=== PATIENT | female | born 1965 | race Caucasian/White ===

== ENCOUNTER 2021-03-13 11:30 | Outpatient (REF) | payer BC, SELFPAY ==
[2021-03-13 13:26] LABS: Binax Internal Control QC Valid; Binax Now Covid-19 Ag Negative (Negative)
== END 2021-03-13 11:31 | disposition home or self-care (01) ==
LOC: HO.LAB 11:30
PROVIDERS: Visit Provider Internal Medicine
DX: Z20.822 Contact with and (suspected) exposure to COVID-19 (principal)
CPT/HCPCS: 36415; C9803

== ENCOUNTER 2021-03-13 12:48 | Emergency (ER) | payer BC, SELFPAY ==
[2021-03-13 12:55] VITALS: BP 168/89; PULSE 71; RESP 19; TEMP 36.6; O2SAT 100; BMI 25.7
== END 2021-03-14 00:12 | disposition left against medical advice (07) ==
PROVIDERS: Emergency Provider Emergency Medicine
DX: R42 Dizziness and giddiness (principal)
CPT/HCPCS: 99281; 99282

== ENCOUNTER 2021-10-31 07:50 | Outpatient (REF) | payer BC, SELFPAY ==
--- NOTE | ~2021-10-31 | MM_ITS ---
EXAMINATION: MM SCREENING DIGITAL BREAST TOMOSYNTHESIS, BILATERAL CLINICAL INFORMATION: Screening. Asymptomatic. The lifetime risk of breast cancer based on the Tyrer-Cuzick Model is 13%. COMPARISON: Outside mammography 2D images: 03/15/2018, 10/24/2012 (SAKINA Thayer). TECHNIQUE: Digital breast tomosynthesis is performed in both the craniocaudal and mediolateral oblique views along with computer-aided detection (CAD). Synthesized 2D images are generated from the tomosynthesis. FINDINGS: There are scattered areas of fibroglandular density (ACR BI-RADS breast composition Category b). There are no significant masses, abnormal calcifications, or other abnormalities. Background stromal and fibroglandular densities are similar to outside exams. There is an intramammary node again seen posterior upper outer left breast and a clip marker anterior upper outer right breast. The axilla and skin contours are unremarkable. MM/MM tomosynthesis screening BI IMPRESSION: No mammographic evidence of malignancy. ASSESSMENT: BI-RADS 2: Benign RECOMMENDATION: Routine annual mammography screening. This patient's information was entered into a reminder system with a target due date for their next mammogram.
== END 2021-10-31 07:51 | disposition home or self-care (01) ==
LOC: HO.MAMMO 07:50
PROVIDERS: Visit Provider Internal Medicine
DX: Z12.31 Encounter for screening mammogram for malignant neoplasm of breast (principal)
CPT/HCPCS: 77063; 77067

== ENCOUNTER 2022-04-13 09:23 | Outpatient (REF) | payer BC, SELFPAY ==
[2022-04-13 11:58] LABS: Hematocrit 42.5 % (37.0-47.0); Hemoglobin 14.3 g/dl (12.0-16.0); Mean Corpuscular HGB Conc 33.6 g/dl (31.0-35.0); Mean Corpuscular Hemoglobin 31.4 pg (27.0-33.0); Mean Corpuscular Volume 93.4 fL (80.0-98.0); Mean Platelet Volume 10.5 fL (9.4-12.3); Platelet Count 251 X10*3/uL (160-400); Red Blood Count 4.55 X10*6/uL (4.20-5.50); Red Cell Distribution Width 12.3 % (11.0-16.0); White Blood Count 5.7 X10*3/uL (4.8-10.8)
[2022-04-13 12:36] LABS: Alanine Aminotransferase 13 U/L (0-31); Albumin Level 4.6 g/dL (3.5-5.0); Alkaline Phosphatase 81 U/L (39-117); Anion Gap 12 (12-20); Aspartate Amino Transferase 10 U/L (5-31); Bilirubin Direct 0.2 mg/dL (0.0-0.5); Bilirubin Total 0.8 mg/dL (0.0-1.0); Blood Urea Nitrogen 12 mg/dL (9-16); C Reactive Protein < 0.10 mg/dL (< or = 0.50); Carbon Dioxide 28 mmol/L (22-29); Chloride 105 mmol/L (96-108); Estimated Glomerular Filt Rate > 60; Glucose Random 87 mg/dL (60-115); Lipase 18 U/L (8-78); Potassium 4.2 mmol/L (3.3-5.1); Sodium 141 mmol/L (135-145); Total Protein 7.3 g/dL (6.5-8.0)
[2022-04-13 12:50] LABS: TSH reflex Free T4 1.93 uIU/mL (0.32-4.0)
[2022-04-13 13:01] LABS: Erythrocyte Sedimentation Rate 5 MM/HR (0-20)
[2022-04-15 13:43] LABS: Transglutaminase Ab IgG <1.0 U/mL; Transglutaminase IgA <1.0 U/mL
== END 2022-04-13 09:24 | disposition home or self-care (01) ==
LOC: HO.LAB 09:23
PROVIDERS: PCP Registered Nurse Community Health; Referring Provider Registered Nurse Community Health; Visit Provider Nurse Practitioner Family
DX: Z01.818 Encounter for other preprocedural examination (principal); M25.50 Pain in unspecified joint; K21.9 Gastro-esophageal reflux disease without esophagitis; R10.11 Right upper quadrant pain; K58.2 Mixed irritable bowel syndrome
CPT/HCPCS: 36415; 80053; 82248; 83690; 84443; 85027; 85652; 86140; 86364

== ENCOUNTER 2022-04-14 09:39 | Outpatient (REF) | payer BC, SELFPAY ==
[2022-04-24 00:39] LABS: Pancreatic Elastase-1 >500 mcg/g
== END 2022-04-14 09:40 | disposition home or self-care (01) ==
LOC: HO.LNP 09:39
PROVIDERS: Visit Provider Nurse Practitioner Family
DX: R10.9 Unspecified abdominal pain (principal)
CPT/HCPCS: 82656

== ENCOUNTER 2022-05-12 07:42 | Outpatient (REF) | payer BC, SELFPAY ==
--- NOTE | ~2022-05-12 | US_ITS ---
EXAMINATION: US ABDOMEN COMPLETE CLINICAL INFORMATION: Unspecified abdominal pain. COMPARISON: None TECHNIQUE: Real-time imaging of the abdominal viscera. FINDINGS: PANCREAS: The head of the body of the pancreas is homogeneous echotexture. The tail is obscured by overlying gas. The pancreatic duct measures 0.2 cm. ABDOMINAL AORTA: The proximal, mid, and distal segments are normal in caliber. INFERIOR VENA CAVA: Visualized portions are normal. LIVER: Normal. The liver is normal in size. The liver contour is normal. Parenchymal echogenicity is normal. No focal hepatic lesion. There is no intrahepatic biliary duct dilatation seen. GALLBLADDER: Gallbladder wall thickness measures 0.2 cm. The gallbladder is physiologically distended without evidence of stones, sludge, polyps, wall thickening or pericholecystic fluid. COMMON BILE DUCT: Normal in caliber measuring 0.5 cm in diameter. RIGHT KIDNEY: There is mild pelvic fullness No hydronephrosis. No renal calculi or focal parenchymal lesions. The kidney measures 8.9 cm in maximum dimension. LEFT KIDNEY: There is an echogenic stone in midpole measuring 0.2 x 0.3 cm. No hydronephrosis or focal parenchymal lesions. The kidney measures 10.9 cm in maximum dimension. SPLEEN: Normal. The spleen measures 10.3 cm in maximum dimension. FREE FLUID: None. US/US abdomen complete IMPRESSION: 1. Nonobstructive echogenic stone midpole left kidney. 2. Mild pelvic fullness right kidney. 3. The rest of the abdominal ultrasound is unremarkable.
== END 2022-05-12 07:43 | disposition home or self-care (01) ==
LOC: HO.US 07:42
PROVIDERS: PCP Registered Nurse Community Health; Visit Provider Nurse Practitioner Family
DX: R10.9 Unspecified abdominal pain (principal)
CPT/HCPCS: 76700

== ENCOUNTER → 2022-06-16 10:24 | Outpatient (BNVA) | payer BC, SELFPAY | PROVIDERS: PCP Registered Nurse Community Health; Referring Provider Registered Nurse Community Health; Visit Provider Nurse Practitioner Family | DX: Z13.89 Encounter for screening for other disorder (principal) ==

== ENCOUNTER 2022-07-15 10:38 | Day surgery (SDC) | payer BC, SELFPAY ==
[2022-07-13 13:47] VITALS: BMI 25.3
--- NOTE | 2022-07-14 12:07 | P.CONAN_ITS ---
Documented by User: Tina Moya NP 07/14/22 12:07 HPI - Anesthesia Eval Consult details Narrative: 57yo F for Colonoscopy [facility] Past Medical History Medical History (Updated 07/13/22 @ 13:47 by Annabella Flores RN) GERD (gastroesophageal reflux disease) IBS (irritable bowel syndrome) Family History Family History Sister Breast cancer Father Diabetes Mother HTN (hypertension) Surgical History Surgical History H/O abdominoplasty H/O colonoscopy Previous section Status post breast reduction Social History Social History Alcohol intake: never Patient Tobacco Use Status: Never used Tobacco Use of substances other than those prescribed or required for medical reasons: No Are you DNR?: No Advance Directives: No Advance Directives Information Provided: Yes Meds Allergies Allergy/AdvReac Type Severity Reaction Status Date / Time No Known Allergies Allergy Verified 06/16/22 10:32 Home Medications Medication Instructions Recorded Confirmed Last Taken Type cholecalciferol (vitamin D3) 50 50 mcg PO DAILY 04/13/22 07/13/22 Unknown History mcg (2,000 unit) tablet Exam Exam Date and Time: July 14, 2022 1207 Height,Weight and Vital Signs: Height 5 ft 3 in Weight 64.864 kg Assessment and Plan Assessment Anesthesia Assessment: Chart Reviewed Documented by User: Chelsie Becker MD 07/15/22 12:40 [facility] Past Medical History Medical History (Updated 07/13/22 @ 13:47 by Annabella Flores RN) GERD (gastroesophageal reflux disease) IBS (irritable bowel syndrome) Family History Family History Sister Breast cancer Father Diabetes Mother HTN (hypertension) Family history of problems with anesthesia: No Surgical History Surgical History H/O abdominoplasty H/O colonoscopy Previous section Status post breast reduction History of Problems with Anesthesia: No Social History Social History Alcohol intake: never Patient Tobacco Use Status: Never used Tobacco Use of substances other than those prescribed or required for medical reasons: No Are you DNR?: No Advance Directives: No Advance Directives Information Provided: Yes Meds Allergies Allergy/AdvReac Type Severity Reaction Status Date / Time No Known Allergies Allergy Verified 06/16/22 10:32 Home Medications Medication Instructions Recorded Confirmed Last Taken Type cholecalciferol (vitamin D3) 50 50 mcg PO DAILY 04/13/22 07/13/22 Unknown History mcg (2,000 unit) tablet Exam Airway Mallampati Class: II TM Dist: >3cm Neck ROM: Full Heart: rrr Lungs: cta Assessment and Plan Assessment Anesthesia Assessment: Anesthesia Plan Discussed Final Anesthetic Review Family History of Problems with Anesthesia: No History of Problems with Anesthesia: No NPO: Yes ASA Class: II Final Preanesthetic Review: No Changes in Pt Med Stat, Meds/Allgs Chart Reviewed and Consent Obtained/Reviewed Patient Risk: Intermediate Procedure Risk: Intermediate Anesthetic Plan Anesthetic Plan: MAC: Disposition: Standard PACU
[2022-07-15 12:06] VITALS: BP 136/62; RESP 18; TEMP 36.5; O2SAT 97; BMI 24.8
[2022-07-15] MEDS: Lactated Ringers 1,000 ML 50 ML IVCONT (12:29)
--- NOTE | 2022-07-15 12:40 | MHC.SHP ---
Pre-Procedural Eval Section A Date of Service: 07/15/22 Section B Chief Complaint: Unspecified abdominal pain,reflux Relevant Family History (Specify if Yes): No Relevant Social History: None Present Medications: see Short Stay Collaborative assessment Medical History: Significant History (GERD (gastroesophageal reflux disease) IBS (irritable bowel syndrome)) History of Previous Operations: Relevant previous surgery/procedure and date(s) (H/O abdominoplasty H/O colonoscopy Previous section Status post breast reduction) Allergies: Allergies Allergy/AdvReac Type Severity Reaction Status Date / Time No Known Allergies Allergy Verified 06/16/22 10:32 Review of Systems Sugical H&P ROS: Negative: Constitution, Cardiovascular, Respiratory, Neurological, Psychiatric, Hem-Onc, Allergic/Immunologic, Gastrointestinal, Genitourinary, Musculoskeletal, Integumentary, Endocrine and Eyes/Ears/Nose/Throat Exam Surgical H&P Exam: Normal: HEENT, Normal: Heart, Normal: Lungs, Normal: Extremities, Normal: Abdomen, Normal: Skin and Normal: Neurological Plan Diagnosis/Plan: Unchanged I have reviewed the history and physical and performed a pertinent physical examination on my patient. No changes have occurred unless specified. Time Spent With Patient Time: Total time managing care of this patient today ____ minutes.
--- NOTE | 2022-07-15 13:41 | P.OP_ITS ---
Operative Note Operative Note Date of Service: 07/15/22 Narrative: Operative Information Procedure Description: EGD, Colonoscopy Indication: abdominal pain Anesthesia: MAC FLEXIBLE TRANSORAL UPPER GASTROINTESTINAL ENDOSCOPY AND COLONOSCOPY PROCEDURE NOTE UPPER ENDOSCOPY Consent: Indications for the procedure and potential complications of bleeding, perforation, reaction to medications and missed diagnosis were discussed with the patient and informed consent was obtained. Instrument: Olympus GIF H 190 J mid size upper endoscope Monitoring: Vital signs and clinical assessment, continuous EKG monitoring, Pulse oximetry, Carbon Dioxide monitoring and blood pressure monitoring were done throughout the procedure. Procedure: The patient was placed in the left lateral decubitis position and pre-procedure medications were administered and a bite block was placed. The endoscope was inserted into the mouth and advanced under direct vision to the third part of duodenum. A careful inspection was made as the upper endoscope was withdrawn including a retroflexed examination of the proximal stomach; Findings and interventions are described below. Findings: Larynx:normal Esophagus: GE junction at 40 cm, diaphragm hiatus at 40 cm, soem esophagitis at GEJ, bx taken as well as from distal esophagus Stomach: patchy gastritis in antrum and around cardia bx taken. Grade 2 flap valve on retroflexed examination of the cardia. Duodenum: Normal bulb and descending duodenum, bx taken Intervention: Biopsies as noted above COLONOSCOPY Instrument: Olympus variable stiffness pediatric scope 190L Colonoscopy Monitoring: Vital signs and clinical assessment, continuous EKG monitoring, Pulse oximetry, Carbon Dioxide monitoring and blood pressure monitoring were done throughout the procedure. Colon withdrawal time was 18 minutes. Procedure: The patient was placed in the left lateral decubitis position and pre-procedure medications were administered. After a digital rectal examination of the ano-rectum, the video colonoscope was inserted into the rectum and advanced through the colon to the cecum/TI. The colonoscope was slowly withdrawn in a retrograde panoramic fashion and the colon mucosa was carefully examined including a retroflexed view of the rectum. Findings and interventions are described below. Procedure Difficulty: moderate Findings: Terminal Ileum-normal, bx taken random colon bx taken Cecum: 4-6 mm sessile polyp removed with cold forceps Ascending Colon: normal Transverse Colon -normal Descending Colon:normal Sigmoid Colon: mild diverticulosis Rectum: Retroflexion with small internal hemorrhoids, grade I Anorectum - normal Colon preparation: [place] Bowel Preparation Scale Right colon; 2 Transverse colon: 2 Left colon; 2 (0 = Unprepared colon segment with mucosa not seen due to solid stool that cannot be cleared. 1 = Portion of mucosa of the colon segment seen, but other areas of the colon segment not well seen due to staining, residual stool and/or opaque liquid. 2 = Minor amount of residual staining, small fragments of stool and/or opaque liquid, but mucosa of colon segment seen well. 3 = Entire mucosa of colon segment seen well with no residual staining, small fragments of stool or opaque liquid) Impression and Post Procedure Diagnosis: Endoscopy Findings: gastritis esophagitis Colonoscopy Findings: polyp internal hemorrhoids Plan: Await Pathology results Repeat Colonoscopy in 5-6 years due to polyp or earlier if clinically indicated High fiber diet leaflet avoid straining at stool, epsom salts and sitz bath, anusol supps or cream if h pylori pos then treat Above findings were reviewed with the patient and relevant handouts were provided if indicated.
[2022-07-15 13:45] VITALS: BP 98/69; PULSE 77; RESP 16; TEMP 36.3; O2SAT 100
[2022-07-15 14:00] VITALS: BP 139/75; PULSE 57; RESP 14; TEMP 36.3; O2SAT 99
== END 2022-07-15 14:45 | disposition home or self-care (01) ==
PROVIDERS: PCP Registered Nurse Community Health; Visit Provider Internal Medicine Gastroenterology
PROC: (CPT 45380; principal; 2022-07-15 12:50)
DX: R10.9 Unspecified abdominal pain (principal); D12.0 Benign neoplasm of cecum; K57.30 Diverticulosis of large intestine without perforation or abscess without bleeding; K64.0 First degree hemorrhoids; K58.9 Irritable bowel syndrome, unspecified; R13.10 Dysphagia, unspecified; K29.50 Unspecified chronic gastritis without bleeding; K21.9 Gastro-esophageal reflux disease without esophagitis; K20.90 Esophagitis, unspecified without bleeding; K44.9 Diaphragmatic hernia without obstruction or gangrene; Z98.890 Other specified postprocedural states; Z87.891 Personal history of nicotine dependence
CPT/HCPCS: 45380; 43239; 88305; 88342

== ENCOUNTER → 2022-07-20 10:27 | Outpatient (REF) | payer BC, SELFPAY ==
--- NOTE | ~2022-07-20 | NM_ITS ---
EXAMINATION: BILIARY TRACT IMAGING STUDY WITH CCK CLINICAL INFORMATION: Unspecified abdominal pain. COMPARISON: Abdominal ultrasound done on 05/12/2022. TECHNIQUE: Serial gamma scintillation camera images were obtained over the abdomen for a total observation period of 60 minutes following the intravenous administration of 5 mCi Tc-99m mebrofenin. FINDINGS: There is good concentration of activity in the liver by 5 minutes post injection. Biliary activity is visualized by 10 minutes. The gallbladder is well visualized by 30 minutes. Small bowel is well visualized by 50 minutes. At 60 minutes post radiopharmaceutical injection, a 30-minute infusion of 1.3 micrograms Sincalide was then begun and an additional 40 minutes of images were obtained. There is good emptying of the gallbladder. By the end of the study there is good clearance of activity from the liver and visualization of diffuse small bowel activity. The calculated gallbladder ejection fraction is 94% (normal gallbladder ejection fraction is greater than 35%). NM/NM hepatobiliary w pharm IMPRESSION: Visualization of the gallbladder is evidence of a patent cystic duct and strong evidence against the diagnosis of acute cholecystitis. The common bile duct is patent. Gallbladder emptying and ejection fraction are normal. Liver function appears normal.
== END ==
LOC: HO.NUCMED 10:27
PROVIDERS: PCP Registered Nurse Community Health; Visit Provider Nurse Practitioner Family
DX: R10.9 Unspecified abdominal pain (principal)
CPT/HCPCS: 78227; A9537; J2805

== ENCOUNTER → 2022-07-28 07:42 | Outpatient (BNVA) | payer BC, SELFPAY | PROVIDERS: PCP Registered Nurse Community Health; Referring Provider Registered Nurse Community Health; Visit Provider Nurse Practitioner Family ==

== ENCOUNTER 2023-03-26 12:21 | Observation (INO) | payer OTHER, BC, SELFPAY ==
--- NOTE | ~2023-03-26 | XR_ITS ---
EXAMINATION: XR CHEST CLINICAL INFORMATION: Headache COMPARISON: None available. TECHNIQUE: 2 views of the chest were obtained. FINDINGS: No significant abnormality is noted involving the heart, lungs, mediastinum, bony thorax or soft tissues. XR/XR chest 2V IMPRESSION: Unremarkable examination.
--- NOTE | ~2023-03-26 | CT_ITS ---
EXAMINATION: CTA head and neck CLINICAL INFORMATION: Left facial numbness, visual changes COMPARISON: None available. TECHNIQUE: Test bolus sequences followed by intravenous administration of 70 mL of Omnipaque 350 contrast. Helical imaging was performed in the axial plane from the skull vertex to the thoracic inlet. Delayed postcontrast imaging of the head was also performed. The data was processed at the angiography technologist workstation for generation of MIP sequences. Angled MIPs and volume rendered reformatted images were also generated at an offline 3D workstation. Stenoses are assessed in accordance with NASCET criteria unless otherwise indicated. This CT examination was performed using dose optimization techniques as appropriate, variously including the following: *Automated exposure control *Adjustment of mA and/or kV according to patient size (this includes techniques or standardized protocols for targeted exams where dose is matched to indication/reason for exam; i.e. extremities or head) *Use of iterative reconstruction technique DLP: 2862 mGy-cm FINDINGS: BRAIN: No acute intracranial hemorrhage or infarct. The campos-white matter differentiation is preserved. No midline shift or hydrocephalus. No acute extra-axial fluid collections. The osseous structures are unremarkable. No orbital pathology. The paranasal sinuses and mastoid air cells are clear. Motion artifact is present. CTA NECK: Three-vessel aortic arch. The innominate and bilateral subclavian arteries are patent. The origins and cervical segments of the common carotid arteries as well as the common carotid artery bifurcations are patent bilaterally. The cervical segments of the internal carotid arteries are also patent bilaterally. The origins and cervical segments of the vertebral arteries are patent bilaterally. No hemodynamically significant stenosis, dissection, or aneurysm. The visualized branches of the external carotid arteries are unremarkable. CTA HEAD: Anterior circulation: The petrous, cavernous, and supraclinoid segments of the internal carotid arteries are patent bilaterally. The major branches of the anterior and middle cerebral arteries as well as the anterior communicating artery complex are patent. No large vessel occlusion, saccular aneurysm, or dissection. Posterior circulation: The intracranial vertebral arteries are patent bilaterally. The basilar artery is normal in course and caliber. The posterior cerebral and superior cerebellar arteries arise normally from the basilar summit. No aneurysm. On delayed imaging, the venous structures demonstrate normal contrast opacification. No filling defect. No abnormal intraparenchymal enhancement. Soft tissues: No suspicious neck mass or cervical adenopathy. Bones: Clear. Bones: No acute osseous abnormality. No lytic or blastic osseous lesions. Mild multilevel degenerative changes of the visualized spine. CT/CT angio head neck IMPRESSION: Within the limitations of this study, -CT head demonstrates no acute intracranial hemorrhage or infarct. -CTA head demonstrates no large vessel occlusion, saccular aneurysm, or dissection. -CTA neck demonstrates no hemodynamically significant stenosis, dissection, or aneurysm.
--- NOTE | ~2023-03-26 | MR_ITS ---
EXAMINATION: MR BRAIN WITHOUT CONTRAST CLINICAL INFORMATION: Left facial numbness, floaters COMPARISON: CTA from earlier same day TECHNIQUE: MRI of the brain was obtained using routine sequences without contrast. FINDINGS: No acute infarct. No acute intracranial hemorrhage or extra-axial fluid collection. The ventricles and sulci are normal in size and configuration without significant volume loss or hydrocephalus. No parenchymal signal abnormality. No mass lesion, mass effect, or herniation pattern. Normal intracranial arterial and dural venous sinus flow voids. Normal appearance of the midline structures. The orbits are grossly unremarkable. A submucosal mucosal thickening. No mastoid effusion. Normal marrow signal. MR/MR head/brain wo con IMPRESSION: No acute intracranial abnormality.
[2023-03-26 12:45] VITALS: BP 170/101; PULSE 76; RESP 18; TEMP 37; O2SAT 97; BMI 25.7
--- NOTE | 2023-03-26 13:06 | ECG_ITS ---
Test Reason : ?STROKE Blood Pressure : / mmHG Vent. Rate : 078 BPM Atrial Rate : 078 BPM P-R Int : 176 ms QRS Dur : 090 ms QT Int : 382 ms P-R-T Axes : 044 -11 008 degrees QTc Int : 435 ms Normal sinus rhythm Minimal voltage criteria for LVH, may be normal variant ( R in aVL ) Borderline ECG No previous ECGs available Referred By: Samantha Mendez Electronically Signed By:CHARITY MCNULTY
[2023-03-26 13:27] LABS: MANUAL DIFF FLAG NO
[2023-03-26 13:30] LABS: Basophils Percent Auto 0.7 % (0-2); Eosinophils Absolute Auto 0.1 X10*3/uL (0.0-0.4); Eosinophils Percent Auto 1.2 % (0-4); Hematocrit 38.9 % (37.0-47.0); Hemoglobin 13.2 g/dl (12.0-16.0); Imm Gran Abs Auto 0.01 X10*3/uL (0.00-0.03); Imm Gran Pct Auto 0.2 % (0.0-0.4); Lymphocytes Absolute Auto 2.4 X10*3/uL (1.2-4.9); Lymphocytes Percent Auto 40.5 % (20-40); Mean Corpuscular HGB Conc 33.9 g/dl (31.0-35.0); Mean Corpuscular Hemoglobin 30.6 pg (27.0-33.0); Mean Corpuscular Volume 90.3 fL (80.0-98.0); Mean Platelet Volume 9.9 fL (9.4-12.3); Monocytes Absolute Auto 0.5 X10*3/uL (0.1-1.2); Monocytes Percent Auto 9.1 % (2-11); Neutrophils Absolute Auto 2.9 x10*3/uL (2.0-8.3); Neutrophils Percent Auto 48.3 % (45-73); Platelet Count 285 X10*3/uL (160-400); Red Blood Count 4.31 X10*6/uL (4.20-5.50); Red Cell Distribution Width 12.3 % (11.0-16.0); White Blood Count 5.9 X10*3/uL (4.8-10.8)
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
[2023-03-26 13:34] LABS: INTERNATIONAL NORM RATIO 0.9 (0.9-1.1); Prothrombin Time 10.9 SEC (11.1-13.3)
--- NOTE | 2023-03-26 13:35 | PC.NURSE ---
Alert but agitated stating he needs to speak to Dr. Felix. When asked what he needs to talk to provider about he states dialysis. Patient reminded that he had dialysis yesterday at 6am and if he is still in the hospital and needs dialysis he would be able to receive it at this facility. Patient calmed but then become angry that he is NPO , message sent to provider regarding NPO status. Provider at bedside to explain to patient it is not safe for him to be discharge home at this time. Provider explained to patient he would receive dialysis here tomorrow. BP elevated provider aware
--- NOTE | 2023-03-26 13:41 | PC.NURSE ---
Patient reports was in [facility] yesterday and today is having head, neck , and abdominal pain. Reports seeing springer and black floaters. 20g IV placed in left AC
[2023-03-26 13:49] LABS: Alanine Aminotransferase 16 U/L (0-31); Albumin Level 4.3 g/dL (3.5-5.0); Alkaline Phosphatase 75 U/L (39-117); Anion Gap 12 (12-20); Aspartate Amino Transferase 9 U/L (5-31); Bilirubin Total 0.4 mg/dL (0.0-1.0); Blood Urea Nitrogen 7 mg/dL (9-16); Calcium 9.7 mg/dL (8.4-10.2); Carbon Dioxide 30 mmol/L (22-29); Chloride 105 mmol/L (96-108); Creatinine Clr Calc Pharmacy 93.4; Estimated Glomerular Filt Rate > 60; Glucose Random 104 mg/dL (60-115); Magnesium 2.2 mg/dL (1.6-2.6); Sodium 143 mmol/L (135-145); Total Protein 7.2 g/dL (6.5-8.0)
[2023-03-26 13:59] LABS: Troponin-I High Sensitivity < 2.7 ng/L (<3.5-17.0)
[2023-03-26] MEDS: iohexoL 350 MG/ML 100 ML INFUS..BTL IV (15:22)
[2023-03-26 15:43] LABS: Lipase 18 U/L (8-78)
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
--- NOTE | 2023-03-26 17:31 | PHA.MEDREC ---
Pharmacy Consult ? Medication Reconciliation Pharmacy has completed the medication reconciliation. Confirmed with patient that she is not taking any medication. Sharee Cuevas CPhT
[2023-03-26 18:14] VITALS: BP 132/86; PULSE 83; RESP 16; TEMP 36.9; O2SAT 98
--- NOTE | 2023-03-26 18:57 | PC.NURSE ---
MRI screening form completed with patient, patient then stated she does not want to stay in the hospital overnight. Explained risks of leaving, patient stating she will follow up wednesday if she is still having floaters. Dr. Deal aware patient doesnt want to stay, stating patient would need to leave ama
--- NOTE | 2023-03-26 19:13 | PC.NURSE ---
Patient deciding to stay to have MRI done, provider notified
--- NOTE | 2023-03-26 20:09 | PC.NURSE ---
Pt in MRI
--- NOTE | 2023-03-26 21:32 | PC.NURSE ---
Pt resting at the bedside. No apparent distress noted. Reports eye and neck pain, 6/10. Reports wanting to go home and would like to be called with the MRI results. [place] text sent to Dr. Pino.
[2023-03-26 21:49] VITALS: BP 129/85; PULSE 69; RESP 14; O2SAT 96
[2023-03-26] MEDS: Atorvastatin Calcium 80 MG TABLET PO (21:54)
[2023-03-27] VITALS: BP 130/63; PULSE 77; RESP 20; TEMP 36.1; O2SAT 95
[2023-03-27] MEDS: 0.9 % Sodium Chloride Flush 3 ML SYRINGE IVFLUSH
[2023-03-27 03:22] VITALS: BP 144/75; PULSE 61; RESP 20; TEMP 36.1; O2SAT 94
[2023-03-27] MEDS: Acetaminophen 325 MG TABLET 650 MG PO (06:35)
[2023-03-27 06:55] VITALS: BP 117/76; PULSE 73; RESP 18; TEMP 36.6; O2SAT 100
[2023-03-27 07:14] LABS: Hematocrit 42.3 % (37.0-47.0); Hemoglobin 13.9 g/dl (12.0-16.0); Mean Corpuscular HGB Conc 32.9 g/dl (31.0-35.0); Mean Corpuscular Hemoglobin 30.2 pg (27.0-33.0); Mean Corpuscular Volume 91.8 fL (80.0-98.0); Mean Platelet Volume 9.8 fL (9.4-12.3); Platelet Count 290 X10*3/uL (160-400); Red Blood Count 4.61 X10*6/uL (4.20-5.50); Red Cell Distribution Width 12.5 % (11.0-16.0); White Blood Count 7.3 X10*3/uL (4.8-10.8)
[2023-03-27 07:30] LABS: Anion Gap 13 (12-20); Blood Urea Nitrogen 11 mg/dL (9-16); Calcium 9.6 mg/dL (8.4-10.2); Carbon Dioxide 28 mmol/L (22-29); Chloride 106 mmol/L (96-108); Cholesterol 218 mg/dL (<200); Estimated Glomerular Filt Rate > 60; Glucose Fasting 92 mg/dL (60-99); HDL Cholesterol 51 mg/dL (>40); LDL Cholesterol Calculated 130 mg/dL (<100); Potassium 4.2 mmol/L (3.3-5.1); Sodium 143 mmol/L (135-145); Triglycerides 188 mg/dL (<150)
--- NOTE | 2023-03-27 09:54 | P.CNNE_ITS ---
History of Present Illness Data of Consult Service Date: 03/27/23 Primary Care Provider: [facility] Reason for consult: Complicated migraine 57 years old woman with history of headaches but not that frequent developed a severe throbbing headache all over head yesterday with left-sided facial numbness. At 1 point she also saw grayish spots on left side of her visual field. She came to hospital and had multiple investigations to rule out stroke, all of them negative. She said that sleep to cover her symptom. She denied having any significantly frequent headaches stating that that happened rarely. She was not sick from any cold or flu-like illness and did not have any trauma. Review of Systems 2 Review of Systems: No cold or flu-like illness PMFSH Past Medical History Medical History GERD (gastroesophageal reflux disease) IBS (irritable bowel syndrome) Family History Family History Sister Breast cancer Father Diabetes Mother HTN (hypertension) Surgical History Surgical History History of esophagogastroduodenoscopy (EGD) H/O abdominoplasty Status post breast reduction Previous section H/O colonoscopy Social History Social History Household Members: Family Housing: House Do you presently have visiting nurse or other home services: No Alcohol intake: current Alcohol intake frequency: holidays/special occasions only Patient Tobacco Use Status: Never used Tobacco Smoked in Last 30 Days: No Use of substances other than those prescribed or required for medical reasons: No Currently Displaying Signs/Symptoms of Drug Intoxication Withdrawal: No Any prior treatment program specific to substance use: No Have you been hit, kicked, punched, or otherwise hurt by someone within the past year? If so, by whom?: No Do you feel safe in your current relationship?: Yes Is there a partner from a previous relationship who is making you feel unsafe now?: No Are you made to feel afraid or neglected: No Advance Directives: No Advance Directives Information Provided: Yes Advance Directives on File: No Do you have thoughts of harming others: None Do you have a plan to hurt others: No Plan Recently lost weight without trying: No Eating poorly because of decreased appetite: No Nutrition Risks: No Nutritional Risk Patient : No : No Poor oral hygiene: No Meds Allergies Allergy/AdvReac Type Severity Reaction Status Date / Time No Known Allergies Allergy Verified 03/26/23 12:45 Active Medications: Current Medications Acetaminophen (Acetaminophen 325 Mg Tablet) 650 mg PO Q6H PRN PRN Reason: Pain, Mild (Pain Scale 1-3) Last Admin: 03/27/23 06:35 Dose: 650 mg Aspirin (Aspirin Enteric Coated 81 Mg Tablet.Dr) 81 mg PO DAILY [facility] Last Admin: 03/27/23 09:52 Dose: Not Given Atorvastatin Calcium (Atorvastatin Calcium 80 Mg Tablet) 80 mg PO BEDTIME [facility] Last Admin: 03/26/23 21:54 Dose: 80 mg Enoxaparin Sodium (Enoxaparin Sodium 40 Mg/0.4 Ml Syringe) 40 mg SUBCUT Q24H [facility] Last Admin: 03/27/23 09:47 Dose: Not Given Ondansetron HCl (Ondansetron Hcl 4 Mg/2 Ml Vial) 4 mg IVPUSH Q8H PRN PRN Reason: Nausea and Vomiting Sodium Chloride (0.9 % Sodium Chloride Flush 3 Ml Syringe) 3 ml IVFLUSH QSHIFT [facility] Last Admin: 03/27/23 09:52 Dose: Not Given Zolpidem Tartrate (Zolpidem Tartrate 5 Mg Tablet) 5 mg PO BEDTIME PRN PRN Reason: Insomnia Physical Exam 2 Vital Signs: Vital Signs: Last Vital Signs Temp 97.9 F 03/27/23 06:55 Pulse 73 03/27/23 06:55 Resp 18 03/27/23 06:55 BP 117/76 03/27/23 06:55 Pulse Ox 100 03/27/23 06:55 O2 Del Method Room Air 03/27/23 06:55 BMI result Body Mass Index 25.7 Neuro: Other: She is alert and awake with normal spontaneity of speech fluency comprehension and anxious affect. Face is symmetrical. Visual [place] are full. Deep tendon reflexes are trace to absent with flat plantars. Results Labs 03/27/23 06:43 03/27/23 06:43 Labs: Short CBC 03/26/23 03/27/23 Range/Units 13:22 06:43 WBC 5.9 7.3 (4.8-10.8) X10*3/uL Hgb 13.2 13.9 (12.0-16.0) g/dl Hct 38.9 42.3 (37.0-47.0) % Plt Count 285 290 (160-400) X10*3/uL BMP 03/26/23 03/27/23 13:22 06:43 Sodium 143 143 Potassium 4.0 4.2 Chloride 105 106 Carbon Dioxide 30 H 28 BUN 7 L 11 Creatinine 0.62 0.69 Calcium 9.7 9.6 Liver Function 03/26/23 Range/Units 13:22 Total Bilirubin 0.4 (0.0-1.0) mg/dL AST 9 (5-31) U/L ALT 16 (0-31) U/L Alkaline Phosphatase 75 (39-117) U/L Albumin 4.3 (3.5-5.0) g/dL CT of brain, CTA of brain and neck, an MRI of brain without contrast did not reveal any significant abnormality. Assessment and Plan (1) Complicated migraine: Status: Acute Her overall presentation is suggestive of migraine related facial numbness and visual symptoms. She was reassured and educated. At this time I would suggest sumatriptan as needed. Procedures Date of Service Date of Service: 03/27/23
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
== END 2023-03-27 10:55 | disposition home or self-care (01) ==
LOC: HO.ED 16:53 → HO.EDOVER 18:11 → HO.IMC 22:48
PROVIDERS: Physician Assistant Medical; Admitting Provider Internal Medicine; Emergency Provider Emergency Medicine; Visit Provider Internal Medicine
DX: G43.109 Migraine with aura, not intractable, without status migrainosus (principal); S19.9XXA Unspecified injury of neck, initial encounter; V43.52XA Car driver injured in collision with other type car in traffic accident, initial encounter; Y93.9 Activity, unspecified; Y92.9 Unspecified place or not applicable; Y99.9 Unspecified external cause status; M54.2 Cervicalgia; R20.0 Anesthesia of skin; K21.9 Gastro-esophageal reflux disease without esophagitis; K58.9 Irritable bowel syndrome, unspecified; Z79.899 Other long term (current) drug therapy
CPT/HCPCS: 36415; 70496; 70498; 70551; 71046; 80048; 80053; 80061; 83690; 83735; 84484; 85025; 85027; 85610; 93005; 99222; 99285; Q9967

== ENCOUNTER → 2023-03-26 13:06 | Outpatient (BNV) | payer BC, SELFPAY | PROVIDERS: Admitting Provider Internal Medicine; Emergency Provider Emergency Medicine; Visit Provider Internal Medicine | DX: I63.9 Cerebral infarction, unspecified (principal) | CPT/HCPCS: 93010 ==

== ENCOUNTER → 2023-03-26 14:03 | Outpatient (BNV) | payer OTHER, SELFPAY | PROVIDERS: Emergency Provider Emergency Medicine; Visit Provider Internal Medicine | DX: G43.109 Migraine with aura, not intractable, without status migrainosus (principal); R20.2 Paresthesia of skin | CPT/HCPCS: 99222; 99239 ==

== ENCOUNTER → 2023-03-26 18:09 | Outpatient (BNV) | payer BC, SELFPAY | PROVIDERS: Admitting Provider Internal Medicine; Emergency Provider Emergency Medicine; Visit Provider Psychiatry & Neurology Neurology | DX: G43.109 Migraine with aura, not intractable, without status migrainosus (principal) | CPT/HCPCS: 99222 ==

== ENCOUNTER 2023-05-20 13:58 | Outpatient (REF) | payer BC, SELFPAY ==
[2023-05-20 15:36] LABS: Alanine Aminotransferase 22 U/L (0-31); Albumin Level 4.5 g/dL (3.5-5.0); Alkaline Phosphatase 75 U/L (39-117); Anion Gap 13 (12-20); Aspartate Amino Transferase 16 U/L (5-31); Bilirubin Total 0.6 mg/dL (0.0-1.0); Blood Urea Nitrogen 10 mg/dL (9-16); Calcium 10.1 mg/dL (8.4-10.2); Carbon Dioxide 28 mmol/L (22-29); Chloride 104 mmol/L (96-108); Cholesterol 252 mg/dL (<200); Estimated Glomerular Filt Rate > 60; Glucose Random 91 mg/dL (60-115); HDL Cholesterol 65 mg/dL (>40); LDL Cholesterol Calculated 162 mg/dL (<100); Sodium 141 mmol/L (135-145); Total Protein 7.5 g/dL (6.5-8.0); Triglycerides 127 mg/dL (<150)
== END 2023-05-20 13:59 | disposition home or self-care (01) ==
LOC: HO.LAB 13:58
PROVIDERS: Visit Provider Registered Nurse
DX: R10.11 Right upper quadrant pain (principal); E78.2 Mixed hyperlipidemia; G89.29 Other chronic pain
CPT/HCPCS: 36415; 80053; 80061

== ENCOUNTER 2023-06-21 21:51 | Emergency (ER) | payer BC, SELFPAY ==
[2023-06-21 22:18] VITALS: BP 145/93; PULSE 91; RESP 16; TEMP 37.1; O2SAT 99; BMI 25.7
[2023-06-21 22:49] LABS: MANUAL DIFF FLAG NO
[2023-06-21 22:52] LABS: Basophils Absolute Auto 0.1 X10*3/uL (0.0-0.2); Basophils Percent Auto 0.3 % (0-2); Eosinophils Absolute Auto 0.1 X10*3/uL (0.0-0.4); Eosinophils Percent Auto 0.5 % (0-4); Hematocrit 40.2 % (37.0-47.0); Hemoglobin 13.8 g/dl (12.0-16.0); Imm Gran Abs Auto 0.04 X10*3/uL (0.00-0.03); Imm Gran Pct Auto 0.3 % (0.0-0.4); Lymphocytes Absolute Auto 2.8 X10*3/uL (1.2-4.9); Lymphocytes Percent Auto 19.5 % (20-40); Mean Corpuscular HGB Conc 34.3 g/dl (31.0-35.0); Mean Corpuscular Hemoglobin 31.8 pg (27.0-33.0); Mean Corpuscular Volume 92.6 fL (80.0-98.0); Mean Platelet Volume 10.1 fL (9.4-12.3); Monocytes Absolute Auto 1.1 X10*3/uL (0.1-1.2); Monocytes Percent Auto 7.9 % (2-11); Neutrophils Absolute Auto 10.2 x10*3/uL (2.0-8.3); Neutrophils Percent Auto 71.5 % (45-73); Platelet Count 232 X10*3/uL (160-400); Red Blood Count 4.34 X10*6/uL (4.20-5.50); Red Cell Distribution Width 12.6 % (11.0-16.0); White Blood Count 14.3 X10*3/uL (4.8-10.8)
[2023-06-21 22:53] LABS: Appearance Urine Cloudy; Color Urine Orange; Glucose Urine UA Negative (Negative); Leukocyte Esterase Urine Large (3+) (Negative); Nitrite Urine Positive (Negative); Specific Gravity - Urine 1.015 (1.005-1.025); UMIC TRIGGER UACC YES; Urine Blood Large (3+) (Negative); Urine Ketones Negative (Negative); Urine Protein 300 (3+) mg/dL (Neg-Trace)
[2023-06-21 23:05] LABS: Alanine Aminotransferase 18 U/L (0-31); Albumin Level 4.4 g/dL (3.5-5.0); Alkaline Phosphatase 72 U/L (39-117); Anion Gap 14 (12-20); Aspartate Amino Transferase 14 U/L (5-31); Bilirubin Total 0.4 mg/dL (0.0-1.0); Blood Urea Nitrogen 11 mg/dL (9-16); Calcium 9.8 mg/dL (8.4-10.2); Carbon Dioxide 24 mmol/L (22-29); Chloride 106 mmol/L (96-108); Creatinine Clr Calc Pharmacy 82.9; Estimated Glomerular Filt Rate > 60; Glucose Random 98 mg/dL (60-115); Potassium 4.2 mmol/L (3.3-5.1); RBC Urine >20 /HPF (0-2); Sodium 140 mmol/L (135-145); Total Protein 7.4 g/dL (6.5-8.0); UACC Culture Trigger YES
[2023-06-21 23:06] LABS: Bacteria Urine 3+ (None Seen)
== END 2023-06-22 01:05 | disposition left against medical advice (07) ==
PROVIDERS: Emergency Provider Emergency Medicine; PCP Registered Nurse
DX: R30.9 Painful micturition, unspecified (principal); R35.0 Frequency of micturition
CPT/HCPCS: 36415; 80053; 81001; 81003; 85025; 87086; 87088; 87186; 99282; 99283

== ENCOUNTER → 2024-11-24 18:32 | Outpatient (BNV) | payer BC, SELFPAY | PROVIDERS: PCP Registered Nurse; Visit Provider Radiology Diagnostic Radiology | DX: R51.9 Headache, unspecified (principal) | CPT/HCPCS: 70551 ==

== ENCOUNTER 2024-11-24 18:39 | Outpatient (REF) | payer BC, SELFPAY ==
--- NOTE | ~2024-11-24 | MR_ITS ---
EXAMINATION: MR BRAIN WITHOUT IV CONTRAST HISTORY: New daily headache TECHNIQUE: Sagittal T1, and axial T1, FLAIR, T2, gradient echo, and diffusion weighted MR images of the brain were obtained. COMPARISON: Comparison is made with the prior examination dated 03/26/2023. FINDINGS: The pituitary is normal in size. The cerebellar tonsils are normally located. The brain parenchyma is unremarkable, demonstrating normal campos/white differentiation. No foci of abnormal signal intensity are identified. The ventricular system is normal in size and configuration. There is no mass effect or midline shift. No intra or extra-axial fluid collections are identified. There are no foci of restricted diffusion. Normal vascular flow voids are noted in the basilar and carotid arteries. The visualized paranasal sinuses are clear. MR/MR head/brain wo con IMPRESSION: Unremarkable MRI of the brain without contrast. Electronically signed by: Dany Yee MD 11/27/2024 07:12 AM EDT
--- OUTSIDE RECORDS SUMMARY | 2024-11-24 18:42 | XMS_ITS | Clinical Summary ---
Author Organization [facility] Address [facility] [address] [address] Phone Care Team Providers Care Superintendent Generating Plant Name Role Phone Hosea Dey MD Primary Care Provider + Allergies No known active allergies Social History Tobacco Use Types Packs/Day Years Used Date Smoking Tobacco: Never Assessed Education Answer Date Recorded Are you interested in more education? Not on isabel e 07/19/2022 Are you concerned about learning? Not on file 07/19/2022 No 07/19/2022 No 07/19/2022 Digital Access Answer Date Recorded No 08/02/2022 No 08/02/2022 No 08/02/2022 Reliable internet access at home? Not on file 08/02/2022 Device with a working camera? Not on file Comments Unknown Sex and Gender Information Value Date Recorded Sex Assigned at Not on file Legal Sex Female 5:41 PM EST Gender Identity Not on file Sexual Orientation Not on file Last Filed Vital Signs Vital Sign Reading Time Taken Comments Blood Pressure 135/77 05/03/2019 3:29 PM EST Pulse 61 05/03/2019 3:29 PM EST Temperature 37 C (98.6 F) 05/03/2019 3:29 PM EST Respiratory Rate 14 05/03/2019 3:29 PM EST Oxygen Saturation 100% 05/03/2019 3:29 PM EST Inhaled Oxygen Concentration - - Weight - - Height - - Body Mass Index - - Plan of Treatment Health Maintenance Due Date Last Done Comments DEPRESSION SCREENING 1979 SMOKING Hx and SMOKELESS TOBACCO SCREENING 1980 HEPATITIS C SCREENING 1985 HIV ONE-TIME SCREENING (18-65 YEARS) 1985 PAP SMEAR 1988 MAMMOGRAM 2007 COLOGUARD 2012 COLONOSCOPY 2012 COLORECTAL CANCER SCREENING 2012 FIT TEST 2012 FOBT 2012 SIGMOIDOSCOPY 2012 VIRTUAL COLONOSCOPY 2012 LIPID PANEL 02/21/2017 02/22/2012 PNEUMOCOCCAL VACCINES (50+ years) (1 of 1 - PCV) 2017 ZOSTER VACCINES (1 of 2) 2017 INFLUENZA VACCINE (#1) 2024 7, 11/29/2015, 04/03/2013, Additional history exists COVID-19 VACCINE ( season) 2024 Adult Td,Tdap Booster 11/28/2025 11/29/2015 HEPATITIS A VACCINES Aged Out No long er eligible based on patient's age to complete this topic HIB VACCINES Aged Out No longer eligi ble based on patient's age to complete this topic MENINGOCOCCAL VACCINES (ACWY) Aged Out No longer eligible based on patient's age to complete this topic MENINGOCOCCAL VACCINES (B) Aged Out N o longer eligible based on patient's age to complete this topic Medical Devices Not on file Insurance O POS [facility] H[facility] POS O POS [facility] [address] [place] [address]O POS [facility] [place] [address] [place] [address] HMO [facility] [place] [address] [place] [address] HMO POS HMO POS [facility] HMO POS [facility] HMO POS [place] [address] [place] [address] HMO POS Member Subscriber Plan / Payer (Ef fective 2011-) Name:Lyle Foster Relation to Subscriber:Spouse Name:KAROLINA FOSTER Date of :1900 (Home) Address: [address] [place] [address] Payer ID:[id number] (NAIC) Type:HMO Address: [id number] HMO POS O POS Member Subscriber Plan / Payer (Ef fective 2011-Present) Name:Obie Fostermarjorie Relation to Subscriber:Spouse Name:KAROLINA FOSTER Date of :1900 (Home) Address: [address] [place] [id number] Payer ID:[id number] (NAIC) Type:HMO Address: [facility] [id number] HMO POS Care Teams Superintendent Generating Plant Relationship Specialty Start Date End Date Hosea Dey MD [address]ft[address]har Pritchard tracey [address] [address] PCP - General 09/05/13 Additional Source Comments The information contained in this document represents components of the legal health record. It is not the complete legal health record.[facility]
--- OUTSIDE RECORDS SUMMARY | 2024-11-24 18:42 | XMS_ITS | Encounter Summary ---
Author Organization [employer] Address [address] [place] [address] [address] [place] [address] Care Team Providers Care Floor Grinder Name Role Phone Gal, [facility] Primary Care Provider [phone] Reason for Visit * Reason Onset Date Comments Nurse Triage 06/28/2024 Encounter Details Date Type Department Care Team (Late st Contact Info) Description 06/28/2024 Telephone [facility] [address] [place], [place] [phone] [facility] [address] [place], [place] [phone] Nurse Triage Social History Tobacco Use Types Packs/Day Years Used Date Smoking Tobacco: Former Cigarettes Smokeless Tobacco: Never Alcohol Use Standard Drinks/Week Comments Never 0 (1 standard drink = 0.6 oz pur e alcohol) Depression Answer Date Recorded Patient Health Questionnaire-9 Score 0 12/06/2023 Patient Health Questionnaire-9 Score 0 12/06/2023 Last PHQ-9: Questionnaire Data Not on file 0 12/06/2023 Housing Stability Answer Date Recorded What is your housing situation today? I have isaac collier 12/06/[address] you li ve. Do you have problems with any of the following? None of the above 12/06/2023 Food Insecurity Answer Date Recorded Within the past 12 months, y ou worried that your food would run out before you got money to buy more: Never True 12/06/2023 Within the past 12 months,th e food you bought just didn't last and you didn't have enough money to get more: Never True Transportation Answer Date Recorded In the past 12 months, has l ack of transportation kept you from medical appts, meetings, work or from getting things needed for daily living? No 12/06/2023 Utilities Answer Date Recorded In the past 12 months, has t he electric, gas, oil or water company threatened to shut off services in your home? No 12/06/2023 Depression Answer Date Recorded Patient Health Questionnaire-2 Score 0 12/06/2023 Internet Access Answer Date Recorded Internet Access Q1 Yes 12/06/2023 Internet Access Q2 Not on file 12/06/2023 Comments Unknown Sex and Gender Information Value Date Recorded Sex Assigned at Female 01/05/2022 10:40 AM EDT Legal Sex Female 10:40 AM EDT Gender Identity Female 01/05/2022 10:40 AM EDT Sexual Orientation Choose not to disclose 2021 10:40 AM EDT documented as of this encounter Miscellaneous Notes * Telephone Encounter - Juju Buitrago RN - 06/28/2024 11:05 AM EDT Triage call Pt reports cold sx for last 3 weeks but, realizes this is more allergy related. Pt has nasal congestion, drainage, cough, itchy eyes. Pt reports that antihistamine has been helping but,no longer has prescriptions for this medication and would like flonase. Pt is advised to come to see provider and new prescriptions will be given if needed. Pt agrees with disposition . ASK apt todayat 345pm with BUS OR TRUCK GARAGE MECHANIC Carlene, Insurance is verified as active prior to booking. Protocol Used: Nasal Allergies (Hay Fever) (Adult) Protocol-Based Disposition: See in Office or Video Visit within 3 Days Video visit not offered Positive Triage Question: * Patient wants to be seen * All higher-acuity triage questions were negative Care Advice Discussed: * Reassurance and Education - Hay Fever * Reasons To Call Back - Symptoms are not controlled in 2 days with continuous antihistamines - You become worse * Telephone Encounter - Kimberlyn Garza - 06/28/2024 10:09 AM EDT Symptom: Cough , stuffy nose Outcome: Schedule an appointment to be seen within 24 hours Reason: Caller denied all higher acuity questions The caller accepted this outcome. documented in this encounter Plan of Treatment Upcoming Encounters Date Type Department Care Team (Late st Contact Info) Description 12/15/2024 1:15 PM EDT Telemedicine [facility] [address] [place] [address] Darling Santo FNP [address] [place] [address] documented as of this encounter Visit Diagnoses Not on filedocumented in this encounter Additional Health Concerns Assessment Noted Time PHQ-9 Depression Total Score: 0 12/06/19 24 9:57 AM EDT documented as of this encounter Care Teams Floor Grinder Relationship Specialty Start Date End Date Darling Santo FNP [address] [place] [address] PCP - General Family Medicine 11/03/21 documented as of this encounter
--- OUTSIDE RECORDS SUMMARY | 2024-11-24 18:42 | XMS_ITS | Clinical Summary ---
Author Organization [employer] Address [address] [facility] 7t [place] [address] Care Team Providers Care Capsule Filling Machine Operator Name Role Phone Darling Santo [facility] Primary Care Provider [phone] Allergies Active Allergy Reactions Criticality Noted Date Comments Gluten Meal 10/21/2021 Lactose 10/21/2021 Pollen Extract Runny nose Medium 06/01/2017 Medications cholecalciferol (Vitamin D-3) 50 MCG (1999 UT) tablet Take 1 tablet (50 mcg) by mouth in the morning. Take by mouth in the morning. 90 tablet 1 3 Active omeprazole (PriLOSEC) [address] capsule Take 1 capsule by mouth 1 (one) time each day. 4 Active Multiple Vitamins-Minera ls (CENTRUM ADULT PO) Take 1 tablet by mouth in the morning. OTC Active acetaminophen (Tylenol) 325 MG tablet 1 tablet every 6 (six) hours if needed for mild pain. OTC Active loratadine (Claritin) 10 MG tabletIndicatio ns:Seasonal allergies Take 1 tablet (10 mg) by mouth Once per day. 30 tablet 5 Active fluticasone (Flonase) 50 MCG/ACT nasal sprayIndication s:Seasonal allergies Administer 1-2 sprays into each nostril Once per day. Shake gently. Before first use, prime pump. After use, clean tip and replace cap. 16 g 2 5 06/29/19 26 Active clonazePAM (KlonoPIN) 0.5 MG tabletIndicatio ns:Anxiety Take 1 tablet (0.5 mg) by mouth if needed in the morning and at bedtime for anxiety. 30 tablet 5 Active Active Problems Problem Noted Date Diagnosed Date Elevated blood pressure read ing in office with diagnosis of hypertension 06/28/2024 Seasonal allergies 06/28/2024 Healthcare maintenance 10/27/2022 Overview (12/06/2023): Mammo: Appointment upcoming Pap: 11/2021 neg C-scope: 2018 [facility] [place] [facility], need records BMD: Routine age 67 Eye Exam: arian YARBROUGH Assessment & Plan (11/15/2022 8:23 AM EDT): Recommended shingles vaccine; pt states will consider. Vaccines otherwise UTD Fibromyalgia 05/21/2022 Overview (11/15/2022): Declines pharmacologic treatment Focusing on mindfulness and stress reduciton Gastritis and duodenitis 06/03/2017 Overview (03/19/2022): 05/23: Endoscopy showed patchy mild inflammation characterized by erythema and granularity in the duodenal bulb aand gastric antrum. Biopsies negative for Helicobacter pylori. Start PPI for 3 months, advise pt to avoid food trigger pain and will revaluate in three months. Esophagitis determined by endoscopy 06/02/2017 Overview (08/12/2022): 05/23: Endoscopy revealed grade A reflux esophagitis at the gastroesophageal junction. Start PPI for 3 months, advise pt to avoid food trigger her discomfort then revaluate. 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 07/21: test insignificant Chronic RUQ pain 11/09/2012 Overview (05/16/2023): >10 year hx of RUQ pain. Per chart review patient with extensive hx of abdominal pain since approx [address]-scans and ultrasounds. EGD and colonoscopy 2017 w/ reflux, neg h.pylori. Followed by [facility] [place] [place] [facility]. No fever/diarrhea/blood in stool/constipation. Taking apple cider vinegar, organic potato, honey which improves sx. Sx are worse with dairy products. Unremarkable colonoscopy/EGD at [facility] [place] [place] [facility] 07/2022. Assessment & Plan (11/15/2022 8:19 AM EDT): Follow as scheduled with GI ED precautions reviewed to include severe worsening pain associated with fever. Patient verbalizes understanding and agrees to plan Assessment & Plan (03/19/2022 11:09 AM EST): Chronic RUQ, present at least since 2011 with no changes. Hx as below. 03/21: given persistence and severity of pain, referred directly to gen surg. 05/19: pain better after h pylori treatment. Normal HIDA. Dr Urban recommends PT 08/19: abdominal nerve entrapment vs parasite vs MSK -- + schisto, needs treatment 07/21: schistosoma test is insignificant 08/22:well controlled with diet for now 05/23: endoscopy showed reflux esophagealgastroduodonitis, biopsy negative for H pylori. The plan is to start her on PPI for 3 months and avoid unnecessary testing, then revaluate in 3 months. 12/23: renal u/s normal 03/26: CT abd: non-obstructing stones on LEFT, no stones seen on right Seen by GI locally, EGD and colonoscopy scheduled. Reassurance given, there is no evidence of metastatic melanoma and Pt has no Hx of melenoma but Pt has been reading about it. She has a dermatology appointment next month. We discussed effects of stress on GI system and stress management. Anxiety 01/15/2010 Assessment & Plan (11/15/2022 8:21 AM EDT): Improving Declines BHN referral Declines pharmacologic treatment Contact HC if sx worsen or experiencing thoughts of SI or self harm. Pt has N crisis contact information Resolved Problems Problem Noted Date Diagnosed Date Resolved Date Chronic generalized pain 10/21/202109/2022 COVID-19 virus infection 01/03/202007/2022 Overview (03/19/2022): Risk category: Tested? Positive Community managed: Principal it risk advisor: Requires additional outreach: No Risk factors: . Will fup re derm manifestations. Clinical Course First date of symptoms: 12/31/1901/04 (D3) seen for derm manifestation. 01/08/20: (DOI 8): left message will attempt call back. 01/09/20: (DOI9): left message will attempt call back. Call back and left message for the triage center to call with any worsening of her symptoms to the triage line. 01/10/20: (D10) left message will return care to PMD. Advanced Care Planning Health Care Proxy: Yes ABNER SEQUEIRA Code Status: Documentation of GOC discussions: Adjustment disorder with mix ed anxiety and depressed mood 12/14/2011 08/12/2022 Sleep stage dysfunction 01/15/2010 04/0 07/2022 Encounters Date Type Department Care Team Description 11/13/2024 1:45 PM EDT Office Visit [facility] [address] [place] [address] Darling Santo FNP Anxiety (Primary Dx); New daily persistent headache; Gastritis and duodenitis 11/13/2024 Travel 11/10/2024 Telephone [facility] [address] [place] [address] Darling Santo FNP Chart Prep 08/25/[address] [address] Darling Santo FNP september recall from Last 3 Months Immunizations Immunization Administration Dates Next Due Influenza injectable quadriv alent IIV4 with preservative 12/23/2016 Influenza live intranasal qu adrivalent LIAV4 11/29/2015 Influenza, IIV3, injectable 04/03/2013, 7,01/12/2005 MMR 06/23/2005 PPD Test 01/12/2005 Pfizer Covid-19 Vaccine 12+ 10/13/2020, 1 Td (adult), unspecified 06/23/2005 Tdap 11/29/2015 Family History Medical History Relation Name Comments Breast cancer Sister Colon cancer Neg Hx Relation Name Status Comments Sister Social History Tobacco Use Types Packs/Day Years Used Date Smoking Tobacco: Former Cigarettes Smokeless Tobacco: Never Tobacco Cessation:Counseling Given: Not Answered Alcohol Use Standard Drinks/Week Comments Never 0 (1 standard drink = 0.6 oz pur e alcohol) Depression Answer Date Recorded Patient Health Questionnaire-9 Score 3 11/13/2024 Patient Health Questionnaire-9 Score 3 11/13/2024 Last PHQ-9: Questionnaire Data Not on file 0 11/13/2024 Housing Stability Answer Date Recorded What is [...] Date Recorded Patient Health Questionnaire-2 Score 0 11/13/2024 Internet Access Answer Date Recorded Internet Access Q1 Yes 12/06/2023 Internet Access Q2 Not on file 12/06/2023 Comments Unknown Sex and Gender Information Value Date Recorded Sex Assigned at Female 01/05/2022 10:40 AM EDT Legal Sex Female 10:40 AM EDT Gender Identity Female 01/05/2022 10:40 AM EDT Sexual Orientation Choose not to disclose 2021 10:40 AM EDT Last Filed Vital Signs Vital Sign Reading Time Taken Comments Blood Pressure 138/88 11/13/2024 1:42 PM EDT Pulse 78 11/13/2024 1:42 PM EDT Temperature 36.2 C (97.2 F) 11/13/2024 1:42 PM EDT Respiratory Rate 18 11/13/2024 1:42 PM EDT Oxygen Saturation 98% 06/28/2024 3:24 PM EDT Inhaled Oxygen Concentration - - Weight 70 kg (154 lb 6.4 oz) 11/13/2024 1:42 PM EDT Height 160 cm (5' 3 ) 11/13/2024 1:42 PM EDT Body Mass Index 27.35 11/13/2024 1:42 PM EDT Plan of Treatment Upcoming Encounters Date Type Department Care Team (Late st Contact Info) Description 12/15/2024 1:15 PM EDT Telemedicine [facility] [address] [place], [place] [phone] [place], [place], [facility] [address] [place], [place] [phone] Health Maintenance Due Date Last Done Comments CT Colonography 1967 FIT DNA/Cologuard 1967 FIT 1967 FOBT 1967 Sigmoidoscopy 1967 Hepatitis B Vaccines (1 of 3 - 19+ 3-dose series) 1986 Pneumococcal Vaccine: 50+ Years (1 of 1 - PCV) 2017 Zoster Vaccines (1 of 2) 2017 Mammogram 11/01/2023 10/31/2021, 10/2018, 03/15/2018 COVID-19 Vaccine (3 - season) 2024 10/13/2020, 09/21/2020 Influenza Vaccine (#1) 2024 7, 11/29/2015, 04/03/2013, Additional history exists Pap Smear 11/19/2024 11/19/2021 SDOH Screening 12/05/2024 12/06/2023 Alcohol/Substance Use Screening 11/13/2025 11/13/2024 Depression Screening 11/13/2025 11/13/2024, 11/14/19 Disability Screening 11/13/2025 11/13/2024 Tobacco Screening 11/14/2025 11/14/2024 DTaP/Tdap/Td Vaccines (2 - Td or Tdap) 11/28/2025 11/29/2015, 06/23/2005 Cervical Cancer Screening 11/19/2026 HPV/Cotest 11/19/2026 11/19/2021 Colonoscopy 07/29/2027 07/28/2022 Colorectal Cancer Screening 07/29/2027 Lipid Panel 05/19/2028 05/20/2023, 05/06, 10/21/2021 RSV Patients and Patients Aged 60 years or older (1 - 1-dose 75+ series) 2042 HIV Screening Completed 05/22/2022 Hepatitis C Screening Completed 05/22/2022 HIB Vaccines Aged Out No longer eligi ble based on patient's age to complete this topic HPV Vaccines Aged Out No longer eligi ble based on patient's age to complete this topic Hepatitis A Vaccines Aged Out No long er eligible based on patient's age to complete this topic IPV Vaccines Aged Out No longer eligi ble based on patient's age to complete this topic Meningococcal B Vaccine Aged Out No l onger eligible based on patient's age to complete this topic Meningococcal Vaccine Aged Out No nia teresa eligible based on patient's age to complete this topic RSV under 20 months Aged Out No longe r eligible based on patient's age to complete this topic Rotavirus Vaccines Aged Out No longer eligible based on patient's age to complete this topic Procedures Procedure Name Priority Date/Time Associated Diagnosis Comments LIPID PANEL, STANDARD Routine 05/20/2023 2:23 PM EDT Mixed hyperlipidemia HM COLONOSCOPY Routine 07/28/2022 HEPATITIS C AB W/REFL TO HCV RNA, QN, PCR Routine 05/22/2022 9:40 AM EDT Healthcare maintenance HIV 1/2 ANTIGEN/ANTIBODY, FOURTH GENERATION W/RFL Routine 05/22/2022 9:40 AM EDT Healthcare maintenance THINPREP IMAGING PAP AND HPV MRNA E6/E7 WITH REFLEX TO HPV 16,18/45 Routine 11/19/2021 2:15 PM EDT MAMMOGRAM GENERIC Routine 10/31/2021 8:2 6 AM EDT from Last 3 Months or Most Recently Relevant to Health Maintenance Results * (ABNORMAL) Lipid Panel, Standard (05/20/2023 2:23 PM EDT) Triglycerides 127 <150 mg/dL [facility] Comment:Desirable Triglyceri de: less than 150 mg/dLBorderline High Triglyceride 150-199 mg/dLHigh Triglyceride: 200-499 mg/dLVery High Triglyceride: greater than or equal to 5OO mg/dL Cholesterol 252(H) <200 mg/dL [facility] Comment:Desirable Cholestero l: less than 200 mg/dLBorderline High Cholesterol: 200-239 mg/dLHigh Cholesterol: greater than 239 mg/dL LDL Cholesterol Calculated 162(H) <100 mg/dL [facility] Comment:Desirable LDL: less than 100 mg/dLNear Optimal/Above Optimal LDL: 110- 129 mg/dLBorderline High LDL: 130-159 mg/dLHigh LDL: 160-189 mg/dLVery High LDL: greater than or equal to 190 mg/dL HDL Cholesterol 65 >40 mg/dL [facility] Comment:Desirable HDL: great er than 40 mg/dL Note: This HDL assay may give artificially low results in patients with liver disease. Blood Venous blood specimen / Unknown 05/20/2023 2:23 PM EDT 05/20/2023 2:24 PM EDT [facility] PUBLIC HEALTH ENGINEER LAB BLOOD ORDERABLES Final Re sult [facility] [address] [place] [phone] * (ABNORMAL) Colonoscopy (07/28/2022) Colonoscopy Abnormal( A) Normal Comment:Repeat Colonscopy in 5-6 years due to polyp ( report in media) Historical Provider HEALTH MAINTENANCE Final Result * Hepatitis C Antibody with Reflex to HCV, RNA, Quantitative, Real-Time PCR (05/22/2022 9:40 AM EDT) Hepatitis C Antibody NON-REACT FATOU NON-REACT FATOU [facility] Index 0.06 <1.00 [facility] Comment: HCV antibody was non-reactive. There is no laboratory evidence of HCV infection. In most cases, no further action is required. However, if recent HCV exposure is suspected, a test for HCV RNA (test code 29807) is suggested. For additional information please refer to [email or web address] Party.Breadcrumbtracking/faq/WPN15n0 (This link is being provided for informational/ educational purposes only.) Blood Venous blood specimen / Unknown 05/22/2022 9:40 AM EDT 05/22/2022 9:40 AM EDT Narrative [facility] - 05/25/2022 6:47 PM EDT FASTING:NO FASTING: NO [facility] LAB BLOOD ORDERABLES Final Re sult [facility] [address], [place] [address] [facility] [address] [place] [address] * HIV-1/2 Antigen and Antibodies, Fourth Generation, with Reflexes (05/22/2022 9:40 AM EDT) HIV Antigen/Antibody, 4th Generation NON-REAC TIVE NON-REAC TIVE [facility] Comment: HIV-1 antigen and HIV-1/HIV-2 antibodies were not detected. There is no laboratory evidence of HIV infection. PLEASE NOTE: This information has been disclosed to you from records whose confidentiality may be protected by state law. If your state requires such protection, then the state law prohibits you from making any further disclosure of the information without the specific written consent of the person to whom it pertains, or as otherwise permitted by law. A general authorization for the release of medical or other information is NOT sufficient for this purpose. For additional information please refer to http://Hurricane Party.Breadcrumbtracking/faq/WZU945 (This link is being provided for informational/ educational purposes only.) The performance of this assay has not been clinically validated in patients less than 2 years old. Blood Venous blood specimen / Unknown 05/22/2022 9:40 AM EDT 05/22/2022 9:40 AM EDT Narrative [facility] - 05/25/2022 6:47 PM EDT FASTING:NO FASTING: NO [facility] PUBLIC HEALTH ENGINEER LAB BLOOD ORDERABLES Final Re sult [facility] [address], [place] [address] [facility] [address] [place] [address] * THINPREP TIS PAP AND HPV mRNA E6/E7 WITH REFLEX TO HPV 16,18/45 (11/19/2021 2:15 PM EDT) Clinical Information: None given [facility] COMMENT SEE COMMENT [facility] Comment: EXPLANATORY NOTE: The Pap is a screening test for cervical cancer. It is not a diagnostic test and is subject to false negative and false positive results. It is most reliable when a satisfactory sample, regularly obtained, is submitted with relevant clinical findings and history, and when the Pap result is evaluated along with historic and current clinical information. COMMENT: SEE COMMENT [facility] Comment: This case could not be evaluated with computer assisted technology. The slide was manually screened according to routine procedures. Emd Special Education Teacher: SEE COMMENT [facility] Comment: KN, CT(ASCP) CT screening location: [address] [address] HPV nRNA E6/E7 Not Detected Not Detected [facility] Comment: Methodology: Bus And Sys Integration Senior Manager-Mediated Amplification This assay detects E6/E7 viral messenger RNA (mRNA) from 14 high-risk HPV types (16,18,31,33,35,39,45,51,52,56,58,59,66,68). Cervical sources are required for HPV testing. If a vaginal source from a patient who has had a total hysterectomy with removal of cervix was submitted, please contact the testing laboratory for alternative testing options. For additional information, please refer to http://education.QuanTemplate.admetricks/faq/DLC582h2 (This link if provided for information/ educational purposes only.) Interpretation/Res ult: SEE COMMENT [facility] Comment: Negative for intraepithelial lesion or malignancy. Atrophic pattern; predominantly parabasal cells LMP: 49 [facility] Prev. BX: NONE GIVEN [facility] Prev. PAP: 51 [facility] Review Emd Special Education Teacher: SEE COMMENT [facility] Comment: JNA, CT(ASCP) CT screening location: [place] [address] SOURCE: None given [facility] Statement Of Adequacy: SATISFACTORY FOR EVALUATION [facility] 11/19/2021 2:15 PM EDT us [facility] LAB PATHOLOGY ORDERABLES Final Result Performing Organization Address City/State/[facility] Co de Phone Number [facility] [address] * Mammography Report 1 (10/31/2021 8:26 AM EDT) Anatomical Region Laterality Modality Breast Bilateral Mammography 10/31/2021 8:26 AM EDT Narrative 11/11/2021 8:35 AM EDT Refer to the Notes tab for result details [facility] Procedure: Mammography Report 1 Procedure Note Provider, MD Jorge L - 05/31/2022 Refer to the Notes tab for result details [facility] Procedure: Mammography Report 1 Cameron Lozano MD IMG BI PROCEDURES Fin al Result from Last 3 Months or Most Recently Relevant to Health Maintenance Insurance [facility] Care Teams Capsule Filling Machine Operator Relationship Specialty Start Date End Date Darling Santo FNP [address] [place] [phone] PCP - General Family Medicine 11/03/21
--- OUTSIDE RECORDS SUMMARY | 2024-11-24 18:42 | XMS_ITS | Encounter Summary ---
Author Organization [employer] Address [address] [place] [address] Care Team Providers Care Outside Solar Sales Consultant Name Role Phone [facility] Primary Care Provider Encounter Details Date Type Department Care Team (Late st Contact Info) Description 02/06/[address] [address] [phone] Social History Tobacco Use Types Packs/Day Years Used Date Smoking Tobacco: Never Assessed Comments Unknown Sex and Gender Information Value Date Recorded Sex Assigned at Female 01/05/2022 10:40 AM EDT Legal Sex Female 10:40 AM EDT Gender Identity Female 01/05/2022 10:40 AM EDT Sexual Orientation Choose not to disclose 2021 10:40 AM EDT documented as of this encounter Miscellaneous Notes * Telephone Encounter - Kimberlyn Garza - 02/06/2022 12:51 PM EST Tc from pt requesting a derm appt . documented in this encounter Plan of Treatment Upcoming Encounters Date Type Department Care Team (Late st Contact Info) Description 12/15/2024 1:15 PM EDT Telemedicine [facility] [address] [place] [phone] [phone] documented as of this encounter Visit Diagnoses Not on filedocumented in this encounter Care Teams Outside Solar Sales Consultant Relationship Specialty Start Date End Date Darling Santo FNP [address] [place] [phone] PCP - General Family Medicine 11/03/21 documented as of this encounter
--- OUTSIDE RECORDS SUMMARY | 2024-11-24 18:42 | XMS_ITS | Encounter Summary ---
Author Organization [employer] Address [address] [place] [address] [address] [place] [address] Care Team Providers Care Authorization Coordinator Name Role Phone [facility] Primary Care Provider [phone] Reason for Visit * Reason Comments Med Refill Encounter Details Date Type Department Care Team ([facility] st Contact Info) Description 07/27/2023 Refill [facility] MEDICINE [address] [place], [place] [phone] [facility] [address], [place] [phone] Left ear pain Social History Tobacco Use Types Packs/Day Years Used Date Smoking Tobacco: Former Cigarettes Smokeless Tobacco: Never Alcohol Use Standard Drinks/Week Comments Never 0 (1 standard drink = 0.6 oz pur e alcohol) Depression Answer Date Recorded Patient Health Questionnaire-9 Score 0 10/27/2022 Housing Stability Answer Date Recorded What is your housing situation today? I have isaac collier 01/04/[address] you li ve. Do you have problems with any of the following? None of the above 01/04/2023 Food Insecurity Answer Date Recorded Within the past 12 months, y ou worried that your food would run out before you got money to buy more: Never True 01/04/2023 Within the past 12 months,th e food you bought just didn't last and you didn't have enough money to get more: Never True Transportation Answer Date Recorded In the past 12 months, has l ack of transportation kept you from medical appts, meetings, work or from getting things needed for daily living? No 01/04/2023 Utilities Answer Date Recorded In the past 12 months, has t he electric, gas, oil or water [employer] threatened to shut off services in your home? No 01/04/2023 Depression Answer Date Recorded Patient Health Questionnaire-2 Score 0 10/27/2022 Comments Unknown Sex and Gender Information Value Date Recorded Sex Assigned at Female 01/05/2022 10:40 AM EDT Legal Sex Female 10:40 AM EDT Gender Identity Female 01/05/2022 10:40 AM EDT Sexual Orientation Choose not to disclose 2021 10:40 AM EDT documented as of this encounter Plan of Treatment Upcoming Encounters Date Type Department Care Team (Late st Contact Info) Description 12/15/2024 1:15 PM EDT Telemedicine [facility] MEDICINE [address] [place] [address] Darling Santo FNP [address] [place] [address] documented as of this encounter Visit Diagnoses Diagnosis Left ear pain Unspecified otalgia documented in this encounter Additional Health Concerns Assessment Noted Time PHQ-9 Depression Total Score: 0 10/28/19 23 2:06 PM EDT documented as of this encounter Care Teams Authorization Coordinator Relationship Specialty Start Date End Date Darling Santo FNP [address] [place] [address] PCP - General Family Medicine 11/03/21 documented as of this encounter
== END 2024-11-24 18:40 | disposition home or self-care (01) ==
LOC: HO.MRI 18:39
PROVIDERS: PCP Registered Nurse; Visit Provider Registered Nurse
DX: G44.52 New daily persistent headache (NDPH) (principal)
CPT/HCPCS: 70551